=== PATIENT | female | born 1985 | race Caucasian/White ===

== ENCOUNTER 2016-07-15 16:15 | Outpatient (CLI) | payer MEDICAID ==
--- NOTE | 2016-07-15 17:00 | Non Stress Test Report ---
Non Stress Test Datetime Report Generated by CPN: 07/15/2016 17:00 INDICATION Indication for Study: Ordered by Provider MONITORING Monitor Explained: Monitor Explained; Test Explained; Patient Verbalized Understanding Time on Monitor: 07/15/2016 16:24 Time off Monitor: 07/15/2016 16:50 NST Duration: 26 NST INTERVENTIONS NST Interventions: PO Hydration Physician Notified NST: Dr. Wong BABY A: [id number] Movement : Present Contraction Frequency : none FHR Baseline : 140 Accelerations : 15X15 Decelerations : None Variability : Moderate 6-25bpm NST Review: Meets Criteria for Reactive NST NST Review and Verified By : Thien Erickson [facility] NST Results: Reactive NST REPORT Report Trigger: Send Report
== END 2016-07-15 16:55 | disposition home or self-care (01) ==
LOC: LC 16:15
PROVIDERS: ATTEND Obstetrics & Gynecology
PROC: 4A1HXCZ Monitoring of Products of Conception, Cardiac Rate, External Approach (ICD-10-PCS; principal; 2016-07-15)
DX: Z34.93 Encounter for supervision of normal pregnancy, unspecified, third trimester (principal); Z36 Encounter for antenatal screening of mother; Z3A.38 38 weeks gestation of pregnancy
CPT/HCPCS: 59025

== ENCOUNTER 2016-07-26 05:06 | Inpatient (IN) | payer MEDICAID, OTHER ==
[2016-07-21 11:36] LABS: ABSOLUTE EOSINOPHILS # (AUTO) 0.1 10^3/uL (0.0-0.6); ABSOLUTE LYMPHOCYTES (AUTO) 2.3 10^3/uL (0.5-4.7); ABSOLUTE NEUT (AUTO) 7.4 10^3/uL (1.7-8.2); BASOPHILS % (AUTO) 0.4 % (0-2); EOSINOPHILS % (AUTO) 1.4 % (0-6); HEMOGLOBIN 12.9 g/dL (12.0-15.5); HGB HCT DIFFERENCE 1.7; LYMPHOCYTES % (AUTO) 21.5 % (13-45); MEAN CORPUSCULAR HGB CONC 34.9 g/dL (32.0-36.0); MEAN CORPUSCULAR VOLUME 86 fl (80-97); MONOCYTES % (AUTO) 8.7 % (3-13); RED CELL DISTRIBUTION WIDTH 12.9 % (11.5-14.0); WHITE BLOOD COUNT 10.9 10^3/uL (4.0-10.5)
[2016-07-21 11:45] LABS: APPEARANCE,URINE SLIGHTLY-CLOUDY; BILIRUBIN,URINE NEGATIVE (NEGATIVE); GLUCOSE, URINE NEGATIVE (NEGATIVE); KETONES,URINE NEGATIVE (NEGATIVE); LEUKOCYTE ESTERASE,URINE NEGATIVE (NEGATIVE); NITRITE,URINE NEGATIVE (NEGATIVE); PROTEIN,URINE NEGATIVE (NEGATIVE); URINE SPECIFIC GRAVITY 1.005; UROBILINOGEN,URINE NEGATIVE mg/dL (<2.0)
[2016-07-21 12:04] LABS: URINE BARBITURATES SCREEN NEGATIVE; URINE METHADONE SCREEN NEGATIVE; URINE OPIATES LOW NEGATIVE; URINE PHENCYCLIDINE SCREEN NEGATIVE
[~2016-07-26 05:06] MED LIST: CEFAZOLIN 1 GM/D5W RTU 1 GM/50 ML RTUPB IV PRN; RINGERS SOLUTION,LACTATED 1,000 ML IV PRN; RINGERS SOLUTION,LACTATED 2,000 ML IV PRN
[2016-07-26] MEDS ORDERED: EPHEDRINE SULFATE INJ 50 MG/1 ML AMPULE ONE (07:31)
[2016-07-26] MEDS ORDERED: PROPOFOL INJ 200 MG/20 ML VIAL IV ONE (07:31)
[2016-07-26] MEDS ORDERED: MIDAZOLAM 2 MG/2 ML INJ ONE (07:31)
[2016-07-26] MEDS ORDERED: FENTANYL CITRATE INJ/PF 100 MCG/2 ML AMPUL ONE (07:31)
[2016-07-26] MEDS ORDERED: OXYTOCIN 10 UNIT/ML VIAL ONE (07:31)
[2016-07-26] MEDS ORDERED: OXYCODONE-ACETAMINOPHEN 5-325 MG TABLET PO PRN ×2 (08:18)
[2016-07-26] MEDS ORDERED: MORPHINE SULFATE 10 MG/ML INJ IV PRN (08:18)
[2016-07-26] MEDS ORDERED: FENTANYL CITRATE INJ/PF 100 MCG/2 ML AMPUL IV PRN ×3 (08:18)
[2016-07-26] MEDS ORDERED: PROMETHAZINE HCL INJ 25 MG/1 ML VIAL IV PRN ×2 (08:18→09:20)
[2016-07-26] MEDS ORDERED: DIPHENHYDRAMINE HCL 50 MG/ML VIAL IV PRN (08:18)
[2016-07-26] MEDS ORDERED: MEPERIDINE HCL/PF INJ 25 MG/1 ML DISP.SYRIN IV PRN (08:18)
[2016-07-26] MEDS ORDERED: RINGERS SOLUTION,LACTATED 1,000 ML IV PRN (09:20)
[2016-07-26] MEDS ORDERED: MEASLES,MUMPS&RUBELLA VACC/PF 0.5 ML VIAL SUBCUT PRN (09:20)
[2016-07-26] MEDS ORDERED: OXYTOCIN/NORMAL SALINE 1,000 ML IV PRN (09:20)
[2016-07-26] MEDS ORDERED: DIPH/PERTUSS(ACELL)/TETANUS VAC/PF 0.5 ML SYR (>=10YO) IM PRN (09:20)
[2016-07-26] MEDS ORDERED: ACETAMINOPHEN 325 MG TABLET PO PRN (09:20)
[2016-07-26] MEDS ORDERED: ACETAMINOPHEN 100 ML IV PRN (09:20)
--- NOTE | 2016-07-26 09:32 | Operative Report ---
Operative Report DATE OF SURGERY: 07/26/16 PREOPERATIVE DIAGNOSIS: Repeat breech POSTOPERATIVE DIAGNOSIS: Same OPERATION: Repeat via low transverse uterine incision SURGEON: SANJEEV MATIAS [employer] ATHLETIC DIRECTOR: or staff ANESTHESIA: Spinal TISSUE REMOVED OR ALTERED: Placenta COMPLICATIONS: None ESTIMATED BLOOD LOSS: 250 mL INTRAOPERATIVE FINDINGS: Viable female Apgars 9/9, klaudia breech PROCEDURE: Patient was taken to the OR and placed in supine position after her spinal anesthesia. She is prepared and draped in sterile fashion. Tucker was placed for drainage of the bladder. Low transverse incision was made and carried down the level of the fascia. The fascial incision was made with knife and extended bilaterally with curved Ruiz scissors. The fascia was off the rectus muscles using sharp and blunt dissection. The rectus muscles are in the midline. The peritoneum was entered without incident. Bladder blade was placed in uterine segment was identified. A low transverse incision was made creating a bladder flap. Bladder blade was placed low transverse uterine incision was made with the csafe knife and extended with fingertips. The baby was delivered klaudia breech with some fundal pressure. Mouth and nose were suctioned free. The cord is doubly clamped and cut. Baby is passed off to the retail associate manager bilingual in attendance. The placenta was manually extracted with trailing membranes. The uterus was externalized wrapped in a moist lap sponge. Uterine contents wiped free. Uterus was closed with a running locking layer of 0 chromic suture using the second layer to imbricate the first completing a double layer closure of the uterus. The serosa was closed with a running 2-0 chromic stitch. The pelvis was irrigated and suctioned free of fluid the uterus was replaced in the abdomen. The abdominal wall peritoneum was closed with running 2-0 chromic stitch. Fascia was closed with a running 0 Vicryl in 2 segments. Zhao's layer was brought together with 0 plain gut stitch and the skin was closed with running subcuticular 4-0 undyed Vicryl stitch. The wound was dressed mother and baby did well.
--- NOTE | 2016-07-26 09:35 | PDOC DELIVERY SUMMARY ---
Delivery Summary - Maternal Hx : II Hx # Term Pregnancies: 1 MARY: 08/02/16 Ruptured Membranes: AROM Time of Rupture: 08:24 Fluids: Clear - Delivery Presentation: Breech Support Person Present: Yes Location: OR : Scheduled Placenta: Within Normal Limits Delivery of Placenta Date: 07/26/16 Delivery of Placenta Time: 08:27 - Medications Type of Anesthesia:: Spinal - Assess and Care Baby 1 Female Delivery of Date: 07/26/16 Delivery of Infant Time: 08:25 at 1 minute: 9 at 5 minutes: 9 Preprinted Number On Band: [id number] Skin to Skin: Yes Skin to Skin (Mins): 2 To Nursery At: 08:35 Mode of Transport: [facility] - Delivery Personnel Nursery RN: CLARK POST RN RN: IRINA GARCIA RN: KAREN BURDEN MD: SANJEEV MORAES Copy Center Specialist: JUAN
[2016-07-26] MEDS ORDERED: DIPHENHYDRAMINE HCL 50 MG/ML VIAL ONE (09:39)
[2016-07-26] MEDS ORDERED: ACETAMINOPHEN 100 ML IV ONE (09:40)
[2016-07-26] MEDS: HYDROMORPHONE HCL INJ/PF 2 MG/ML AMPULE IV PRN ×2 (10:33→14:21)
[2016-07-26] MEDS: PRENATAL VITAMIN W-O CA NO5/FE FUMARATE/FA CAPSULE PO SCH (12:01)
[2016-07-26] MEDS: DOCUSATE SODIUM 100 MG CAPSULE PO SCH ×2 (12:01→17:28)
[2016-07-26] MEDS: OXYCODONE-ACETAMINOPHEN 5-325 MG TABLET PO PRN ×2 (12:02→18:26)
[2016-07-26] MEDS ORDERED: ONDANSETRON HCL INJ/PF 4 MG/2 ML SDV ONE (12:41)
[2016-07-26] MEDS ORDERED: PHENYLEPHRINE HCL INJ/PF 10 MG/1 ML SDV ONE (12:41)
[2016-07-26] MEDS: KETOROLAC TROMETHAMINE INJ/PF 30 MG/1 ML SDV IV SCH ×2 (13:11→21:06)
--- NOTE | 2016-07-26 15:24 | L&D Discharge Summary ---
OB Discharge Summary Datetime Report Generated by CPN: 07/26/2016 15:24 DISCHARGE DIAGNOSIS Diagnosis/Symptoms: Other Diagnoses/Symptoms Other: IUP at 37.3, reactive NST Gestation: 38.2 Number of Babies in Womb: 1 Parity: 1 DIET/ACTIVITY/RESTRICTIONS Diet: Regular Activity: Normal Activity TEACHING/INSTRUCTIONS/REFERRALS Instructions Given To: patient Instructions Understood: Patient Verbalized Understanding Referrals: None Educational Materials- Other: kick counts care notes given DISCHARGE INFORMATION Discharged AMA: No Discharge Date/Time: 07/15/2016 16:55 Discharged To: Home Discharge Provider Name: Dr. Wong Accompanied By: self Discharge Method: Ambulatory Condition: Stable FOLLOW UP INFORMATION Follow Up With: [facility] Follow Up On: As Scheduled Follow Up Phone Number: [facility] - GENERAL INSTR-CALL PROVIDER IF: Contractions: Contractions or cramps become more frequent than 8 in one hour or 4 in 20 minutes; Regular painful contractions every 5 minutes or less for one hour. Time your contractions from the beginning of one to the beginning of the next Pressure: Pressure in your vagina or lower abdomen that may feel like the baby is pushing down Period Like Cramps: Period-like cramps or low dull backache that may come and go Cramps/Diarrhea: Abdominal cramps that may be accompanied by diarrhea Gush of Fluid/Blood: Gush of fluid or blood from your vagina (it is normal to have spotting after vaginal exam or intercourse) Vaginal Discharge: Change in the type or amount of vaginal discharge Decreased Movement: Your baby is not moving as much as usual- 4 movements in 1 hour after drinking and resting on side Temperature: Temperature greater than 100.0(F) orally
[2016-07-27] MEDS: OXYCODONE-ACETAMINOPHEN 5-325 MG TABLET PO PRN ×5 (00:17→21:56)
[2016-07-27] MEDS: SIMETHICONE 80 MG TAB.CHEW PO PRN ×3 (00:23→12:04)
[2016-07-27] MEDS: KETOROLAC TROMETHAMINE INJ/PF 30 MG/1 ML SDV IV SCH (05:15)
[2016-07-27 06:51] LABS: HEMATOCRIT 31.4 % (36.0-47.0); HGB HCT DIFFERENCE 1.6; MEAN CORPUSCULAR VOLUME 86 fl (80-97); RED BLOOD COUNT 3.66 10^6/uL (3.72-5.28); RED CELL DISTRIBUTION WIDTH 13.3 % (11.5-14.0); WHITE BLOOD COUNT 13.5 10^3/uL (4.0-10.5)
--- NOTE | 2016-07-27 09:01 | PDOC PROGRESS REPORT ---
Subjective-OB Subjective: Post Delivery Day: 31 year old. Denies any needs at this time Doing well, no c/o, OOB, scant lochia, breast feeding, pain under control, + flatus Physical Exam (OB) Vital Signs: Temp Pulse Resp BP Pulse Ox 98.0 F 87 17 107/67 93 07/27/16 03:45 07/27/16 03:45 07/27/16 03:45 07/27/16 03:45 07/27/16 03:45 Intake & Output 07/26/16 07/27/16 07/28/16 06:59 06:59 06:59 Intake Total 700 Output Total 1700 Balance -1000 Weight 76.4 kg - PIH/Pre-Eclampsia Clonus: Negative - Dressing Removed: No - opsite Incision: Dressing - Lochia Lochia Amount: Small 10-25 ml Lochia Color: Rubra/Red - Abdomen Description: Soft, Round Hernia Present: No Fundal Description: Firm, Midline Fundal Height: u/u - u/2 Objective-Diagnostic Laboratory: 07/27/16 06:33 07/27/16 06:33 WBC 13.5 H RBC 3.66 L Hgb 11.0 L Hct 31.4 L MCV 86 MCH 30.0 MCHC 35.0 RDW 13.3 Plt Count 141 L Assessment and Plan(PN) - Assessment and Plan (1) Hypothyroid Qualifiers: Hypothyroidism type: unspecified Qualified Code(s): E03.9 - Hypothyroidism, unspecified Is this a current diagnosis for this admission?: Yes (2) Asthma Qualifiers: Asthma severity: unspecified severity Is this a current diagnosis for this admission?: Yes - Time Spent with Patient Time with patient: Less than 15 minutes Smoking Education Provided: Over 3 minutes Medications reviewed and adjusted accordingly: Yes - Disposition Anticipated Discharge: Home Within: within 24 hours
[2016-07-27] MEDS: PRENATAL VITAMIN W-O CA NO5/FE FUMARATE/FA CAPSULE PO SCH (10:17)
[2016-07-27] MEDS: DOCUSATE SODIUM 100 MG CAPSULE PO SCH ×2 (10:17→17:06)
[2016-07-27] MEDS: IBUPROFEN 800 MG TABLET PO SCH ×3 (12:02→23:52)
[2016-07-27] MEDS ORDERED: NA PHOS,M-B/NA PHOS,DI-BA (ADULT) 133 ML ENEMA PR ONE (18:30)
[2016-07-27 21:43] LABS: APPEARANCE,URINE CLEAR; BILIRUBIN,URINE NEGATIVE (NEGATIVE); GLUCOSE, URINE NEGATIVE (NEGATIVE); KETONES,URINE NEGATIVE (NEGATIVE); LEUKOCYTE ESTERASE,URINE NEGATIVE (NEGATIVE); NITRITE,URINE NEGATIVE (NEGATIVE); PROTEIN,URINE NEGATIVE (NEGATIVE); UROBILINOGEN,URINE NEGATIVE mg/dL (<2.0)
[2016-07-28] MEDS: OXYCODONE-ACETAMINOPHEN 5-325 MG TABLET PO PRN ×2 (03:57→08:28)
[2016-07-28] MEDS: IBUPROFEN 800 MG TABLET PO SCH ×2 (05:10→11:50)
[2016-07-28] MEDS: SIMETHICONE 80 MG TAB.CHEW PO PRN (08:27)
--- NOTE | 2016-07-28 09:50 | PDOC DISCHARGE SUMMARY ---
Final Diagnosis Discharge Date: 07/28/16 - Final Diagnosis (1) Asthma Is this a current diagnosis for this admission?: Yes (2) Gestational diabetes mellitus Is this a current diagnosis for this admission?: Yes (3) History of delivery, currently Is this a current diagnosis for this admission?: Yes (4) Hypothyroid Is this a current diagnosis for this admission?: Yes Discharge Data - Discharge Medication Home Medications: Glyburide 1.25 mg PO QAM 07/26/16 No.40/Iron/FA/Dha [ Multi-Dha Softgel] 1 cap PO QAM 07/26/16 Reason(s) for Admission: Ceasarean Section-Repeat Procedures: Management of Obstetric Complications Intrapartum Procedure(s): : Low Cervical, Transverse - Diagnosis Test Laboratory: Temp Pulse Resp BP Pulse Ox 97.5 F 87 16 121/68 99 07/28/16 08:14 07/28/16 08:14 07/28/16 08:14 07/28/16 08:14 07/28/16 08:14 07/21/16 07/21/16 07/27/16 09:55 10:55 06:33 RBC 4.30 3.66 L Hgb 12.9 11.0 L Hct 37.0 31.4 L Urine Opiates Screen NEGATIVE - Discharge information/Instructions Discharge Activity: Activity As Tolerated, No Driving, No Lifting Over 10 Pounds , No Lifting/Push/Pulling, Pelvic Rest, No tub bath Discharge Diet: Regular Disposition: HOME, SELF-CARE Follow up with: [facility] in: 1 - as scheduled on 02 August for follow up continue ambulation
[2016-07-28] MEDS: PRENATAL VITAMIN W-O CA NO5/FE FUMARATE/FA CAPSULE PO SCH (09:53)
[2016-07-28] MEDS: DOCUSATE SODIUM 100 MG CAPSULE PO SCH (09:53)
--- NOTE | 2016-07-28 09:54 | PDOC PROGRESS REPORT ---
Subjective-OB Subjective: Post Delivery Day: 31 year old. Denies any needs at this time pt denies pain several bowel movements after enema abdomen soft incision dry and intact urine culture negative pt ready to go home bonding well with precautions reviewed follow up in 1 week s/p c/s learning verbalized Physical Exam (OB) Vital Signs: Temp Pulse Resp BP Pulse Ox 97.5 F 87 16 121/68 99 07/28/16 08:14 07/28/16 08:14 07/28/16 08:14 07/28/16 08:14 07/28/16 08:14 Intake & Output 07/27/16 07/28/16 07/29/16 06:59 06:59 06:59 Intake Total 700 1910 Output Total 1700 Balance -1000 1910 - PIH/Pre-Eclampsia Clonus: Negative - Dressing Removed: No - optsite cdi Incision: Dressing - Lochia Lochia Amount: Small 10-25 ml Lochia Color: Rubra/Red - Abdomen Description: Soft, Round Hernia Present: No Fundal Description: Firm, Midline Fundal Height: u/u - u/2 Objective-Diagnostic Laboratory: 07/27/16 06:33 07/27/16 21:20 Urine Color YELLOW Urine Appearance CLEAR Urine pH 5.0 Ur Specific [place] 1.010 Urine Protein NEGATIVE Urine Glucose (UA) NEGATIVE Urine Ketones NEGATIVE Urine Blood SMALL H Urine Nitrite NEGATIVE Ur Leukocyte Esterase NEGATIVE Urine WBC (Auto) 0 Urine RBC (Auto) 4 Assessment and Plan(PN) - Assessment and Plan (1) Asthma Qualifiers: Asthma severity: unspecified severity Is this a current diagnosis for this admission?: Yes (2) Gestational diabetes mellitus Is this a current diagnosis for this admission?: Yes (3) History of delivery, currently Is this a current diagnosis for this admission?: Yes (4) Hypothyroid Qualifiers: Hypothyroidism type: unspecified Qualified Code(s): E03.9 - Hypothyroidism, unspecified Is this a current diagnosis for this admission?: Yes - Time Spent with Patient Smoking Education Provided: Over 3 minutes Medications reviewed and adjusted accordingly: Yes - Disposition Anticipated Discharge: Home
[2016-07-28 10:19] VITALS: BP 116/59
--- NOTE | 2016-07-28 16:24 | L&D Discharge Summary ---
OB Discharge Summary Datetime Report Generated by CPN: 07/28/2016 16:23 DISCHARGE DIAGNOSIS Diagnosis/Symptoms: Other Diagnoses/Symptoms Other: IUP at 37.3, reactive NST Gestation: 39.1 Number of Babies in Womb: 1 Parity: 1 DIET/ACTIVITY/RESTRICTIONS Diet: Regular Activity: Normal Activity TEACHING/INSTRUCTIONS/REFERRALS Instructions Given To: patient Instructions Understood: Patient Verbalized Understanding Referrals: None Educational Materials- Other: kick counts care notes given DISCHARGE INFORMATION Discharged AMA: No Discharge Date/Time: 07/15/2016 16:55 Discharged To: Home Discharge Provider Name: Dr. Wong Accompanied By: self Discharge Method: Ambulatory Condition: Stable FOLLOW UP INFORMATION Follow Up With: [facility] Follow Up On: As Scheduled Follow Up Phone Number: [facility] - GENERAL INSTR-CALL PROVIDER IF: Contractions: Contractions or cramps become more frequent than 8 in one hour or 4 in 20 minutes; Regular painful contractions every 5 minutes or less for one hour. Time your contractions from the beginning of one to the beginning of the next Pressure: Pressure in your vagina or lower abdomen that may feel like the baby is pushing down Period Like Cramps: Period-like cramps or low dull backache that may come and go Cramps/Diarrhea: Abdominal cramps that may be accompanied by diarrhea Gush of Fluid/Blood: Gush of fluid or blood from your vagina (it is normal to have spotting after vaginal exam or intercourse) Vaginal Discharge: Change in the type or amount of vaginal discharge Decreased Movement: Your baby is not moving as much as usual- 4 movements in 1 hour after drinking and resting on side Temperature: Temperature greater than 100.0(F) orally
--- NOTE | 2016-07-28 22:47 | L&D General Admission ---
General Admit Datetime Report Generated by CPN: 07/28/2016 22:45 INFORMATION Patient Age: 30 (05/17/2016 17:15:QS system process) EDC: 08/02/2016 00:00 (07/15/2016 16:18:Izabel Thayer RN) Para: 1 (07/15/2016 16:18:Izabel Thayer RN) Baby, Number in Womb: 1 (07/15/2016 16:18:Izabel Thayer RN) CARE Primary Office Admin: [facility] (07/15/2016 16:18:Izabel Thayer RN) Adequate Care: Yes (07/15/2016 16:18:Izabel Thayer RN) Height (in): 62 (07/28/2016 09:50:QS system process) Height (in): 62 (07/26/2016 12:41:QS system process) Height (in): 62 (07/26/2016 05:41:QS system process) Height (in): 62 (07/26/2016 05:11:QS system process) Height (in): 62 (07/26/2016 05:07:QS system process) Height (in): 62 (07/15/2016 17:00:QS system process) ALLERGIES Medication Allergies: No Known Allergies (07/21/2016) (07/26/2016 05:07:QS system process) Medication Allergies: No Known Allergies (07/15/2016) (07/15/2016 17:00:QS system process) Medication Allergies: No Known Allergies (07/29/2015) (05/17/2016 17:15:QS system process) COMMUNICATION Primary Language: Tongan (07/15/2016 16:18:Izabel Thayer RN) Medical Tx Preferred Language: Tongan (07/15/2016 16:18:Izabel Thayer RN) DEMOGRAPHICS Address: [address] [place] [id number] (05/17/2016 17:15:QS system process) Zipcode: [address] (05/17/2016 17:15:QS system process) Home (07/26/2016 05:07:QS system process) Home (05/17/2016 17:15:QS system process) N: [id number] (05/17/2016 17:15:QS system process) Next of Kin Name: FIORDALIZA TAI (05/17/2016 17:15:QS system process) Next of Kin (07/26/2016 05:07:QS system process) Next of Kin (05/17/2016 17:15:QS system process) Next of Kin Relationship: SPO (07/06/2016 09:43:QS system process) Next of Kin Relationship: OR (05/17/2016 17:15:QS system process) Date of : 1985 (05/17/2016 17:15:QS system process) Marital Status: (05/17/2016 17:15:QS system process) Sex: Female (05/17/2016 17:15:QS system process) Race: (05/17/2016 17:15:QS system process) Ethnicity: Non- or (05/17/2016 17:15:QS system process) Jain: None (05/17/2016 17:15:QS system process) [employer] Charcoal Burner: [facility] (07/15/2016 16:18:Julia Nuñez RN) Feeding Preference: Breast (07/15/2016 16:18:Julia Nuñez RN) Benefit of Breast Feed Discussed: Yes (07/15/2016 16:18:Julia Nuñez RN) LABS Hemoglobin: 11.0 L (07/27/2016 06:33:QS system process) Hemoglobin: 12.9 (07/21/2016 10:55:QS system process) Hematocrit: 31.4 L (07/27/2016 06:33:QS system process) Hematocrit: 37.0 (07/21/2016 10:55:QS system process) MCV: 86 (07/27/2016 06:33:QS system process) MCV: 86 (07/21/2016 10:55:QS system process)
--- NOTE | 2016-07-28 22:47 | L&D Discharge Summary ---
OB Discharge Summary Datetime Report Generated by CPN: 07/28/2016 22:45 DISCHARGE DIAGNOSIS Diagnosis/Symptoms: Other Diagnoses/Symptoms Other: IUP at 37.3, reactive NST Gestation: 39.2 Number of Babies in Womb: 1 Parity: 1 DIET/ACTIVITY/RESTRICTIONS Diet: Regular Activity: Normal Activity TEACHING/INSTRUCTIONS/REFERRALS Instructions Given To: patient Instructions Understood: Patient Verbalized Understanding Referrals: None Educational Materials- Other: kick counts care notes given DISCHARGE INFORMATION Discharged AMA: No Discharge Date/Time: 07/15/2016 16:55 Discharged To: Home Discharge Provider Name: Dr. Wong Accompanied By: self Discharge Method: Ambulatory Condition: Stable FOLLOW UP INFORMATION Follow Up With: [facility] Follow Up On: As Scheduled Follow Up Phone Number: [facility] - GENERAL INSTR-CALL PROVIDER IF: Contractions: Contractions or cramps become more frequent than 8 in one hour or 4 in 20 minutes; Regular painful contractions every 5 minutes or less for one hour. Time your contractions from the beginning of one to the beginning of the next Pressure: Pressure in your vagina or lower abdomen that may feel like the baby is pushing down Period Like Cramps: Period-like cramps or low dull backache that may come and go Cramps/Diarrhea: Abdominal cramps that may be accompanied by diarrhea Gush of Fluid/Blood: Gush of fluid or blood from your vagina (it is normal to have spotting after vaginal exam or intercourse) Vaginal Discharge: Change in the type or amount of vaginal discharge Decreased Movement: Your baby is not moving as much as usual- 4 movements in 1 hour after drinking and resting on side Temperature: Temperature greater than 100.0(F) orally
--- NOTE | 2016-07-29 04:47 | L&D Admission Assessment ---
LD ADM ASMT Datetime Report Generated by [facility]: 07/29/2016 04:45 Weight (lb): 167 (07/28/2016 09:50:QS system process) Weight (kg): 75.9 (07/28/2016 09:50:QS system process) BMI: 30.5 (07/28/2016 09:50:QS system process)
--- NOTE | 2016-07-29 04:47 | L&D Discharge Summary ---
OB Discharge Summary Datetime Report Generated by CPN: 07/29/2016 04:45 DISCHARGE DIAGNOSIS Diagnosis/Symptoms: Other Diagnoses/Symptoms Other: IUP at 37.3, reactive NST Gestation: 39.2 Number of Babies in Womb: 1 Parity: 1 DIET/ACTIVITY/RESTRICTIONS Diet: Regular Activity: Normal Activity TEACHING/INSTRUCTIONS/REFERRALS Instructions Given To: patient Instructions Understood: Patient Verbalized Understanding Referrals: None Educational Materials- Other: kick counts care notes given DISCHARGE INFORMATION Discharged AMA: No Discharge Date/Time: 07/15/2016 16:55 Discharged To: Home Discharge Provider Name: Dr. Wong Accompanied By: self Discharge Method: Ambulatory Condition: Stable FOLLOW UP INFORMATION Follow Up With: [facility] Follow Up On: As Scheduled Follow Up Phone Number: [facility] - GENERAL INSTR-CALL PROVIDER IF: Contractions: Contractions or cramps become more frequent than 8 in one hour or 4 in 20 minutes; Regular painful contractions every 5 minutes or less for one hour. Time your contractions from the beginning of one to the beginning of the next Pressure: Pressure in your vagina or lower abdomen that may feel like the baby is pushing down Period Like Cramps: Period-like cramps or low dull backache that may come and go Cramps/Diarrhea: Abdominal cramps that may be accompanied by diarrhea Gush of Fluid/Blood: Gush of fluid or blood from your vagina (it is normal to have spotting after vaginal exam or intercourse) Vaginal Discharge: Change in the type or amount of vaginal discharge Decreased Movement: Your baby is not moving as much as usual- 4 movements in 1 hour after drinking and resting on side Temperature: Temperature greater than 100.0(F) orally
--- NOTE | 2016-07-29 04:47 | L&D General Admission ---
General Admit Datetime Report Generated by CPN: 07/29/2016 04:45 INFORMATION Patient Age: 30 (05/17/2016 17:15:QS system process) EDC: 08/02/2016 00:00 (07/15/2016 16:18:Izabel Thayer RN) Para: 1 (07/15/2016 16:18:Izabel Thayer RN) Baby, Number in Womb: 1 (07/15/2016 16:18:Izabel Thayer RN) CARE Primary Computer Forensic Examiner: [facility] (07/15/2016 16:18:Izabel Thayer RN) Adequate Care: Yes (07/15/2016 16:18:Izabel Thayer RN) Height (in): 62 (07/28/2016 09:50:QS system process) Height (in): 62 (07/26/2016 12:41:QS system process) Height (in): 62 (07/26/2016 05:41:QS system process) Height (in): 62 (07/26/2016 05:11:QS system process) Height (in): 62 (07/26/2016 05:07:QS system process) Height (in): 62 (07/15/2016 17:00:QS system process) ALLERGIES Medication Allergies: No Known Allergies (07/21/2016) (07/26/2016 05:07:QS system process) Medication Allergies: No Known Allergies (07/15/2016) (07/15/2016 17:00:QS system process) Medication Allergies: No Known Allergies (07/29/2015) (05/17/2016 17:15:QS system process) COMMUNICATION Primary Language: Montenegrin (07/15/2016 16:18:Izabel Thayer RN) Medical Tx Preferred Language: Montenegrin (07/15/2016 16:18:Izabel Thayer RN) DEMOGRAPHICS Address: [address] [place] [id number] (05/17/2016 17:15:QS system process) Zipcode: [address] (05/17/2016 17:15:QS system process) Home (07/26/2016 05:07:QS system process) Home (05/17/2016 17:15:QS system process) N: [id number] (05/17/2016 17:15:QS system process) Next of Kin Name: FIORDALIZA TAI (05/17/2016 17:15:QS system process) Next of Kin (07/26/2016 05:07:QS system process) Next of Kin (05/17/2016 17:15:QS system process) Next of Kin Relationship: SPO (07/06/2016 09:43:QS system process) Next of Kin Relationship: OR (05/17/2016 17:15:QS system process) Date of : 1985 (05/17/2016 17:15:QS system process) Marital Status: (05/17/2016 17:15:QS system process) Sex: Female (05/17/2016 17:15:QS system process) Race: (05/17/2016 17:15:QS system process) Ethnicity: Non- or (05/17/2016 17:15:QS system process) Nondenominational: None (05/17/2016 17:15:QS system process) Transformer Inspector: [facility] (07/15/2016 16:18:Julia Nuñez RN) Feeding Preference: Breast (07/15/2016 16:18:Julia Nuñez RN) Benefit of Breast Feed Discussed: Yes (07/15/2016 16:18:Julia Nuñez RN) LABS Hemoglobin: 11.0 L (07/27/2016 06:33:QS system process) Hemoglobin: 12.9 (07/21/2016 10:55:QS system process) Hematocrit: 31.4 L (07/27/2016 06:33:QS system process) Hematocrit: 37.0 (07/21/2016 10:55:QS system process) MCV: 86 (07/27/2016 06:33:QS system process) MCV: 86 (07/21/2016 10:55:QS system process)
--- NOTE | 2016-07-29 10:47 | L&D Discharge Summary ---
OB Discharge Summary Datetime Report Generated by CPN: 07/29/2016 10:45 DISCHARGE DIAGNOSIS Diagnosis/Symptoms: Other Diagnoses/Symptoms Other: IUP at 37.3, reactive NST Gestation: 39.2 Number of Babies in Womb: 1 Parity: 1 DIET/ACTIVITY/RESTRICTIONS Diet: Regular Activity: Normal Activity TEACHING/INSTRUCTIONS/REFERRALS Instructions Given To: patient Instructions Understood: Patient Verbalized Understanding Referrals: None Educational Materials- Other: kick counts care notes given DISCHARGE INFORMATION Discharged AMA: No Discharge Date/Time: 07/15/2016 16:55 Discharged To: Home Discharge Provider Name: Dr. Wong Accompanied By: self Discharge Method: Ambulatory Condition: Stable FOLLOW UP INFORMATION Follow Up With: [facility] Follow Up On: As Scheduled Follow Up Phone Number: [facility] - GENERAL INSTR-CALL PROVIDER IF: Contractions: Contractions or cramps become more frequent than 8 in one hour or 4 in 20 minutes; Regular painful contractions every 5 minutes or less for one hour. Time your contractions from the beginning of one to the beginning of the next Pressure: Pressure in your vagina or lower abdomen that may feel like the baby is pushing down Period Like Cramps: Period-like cramps or low dull backache that may come and go Cramps/Diarrhea: Abdominal cramps that may be accompanied by diarrhea Gush of Fluid/Blood: Gush of fluid or blood from your vagina (it is normal to have spotting after vaginal exam or intercourse) Vaginal Discharge: Change in the type or amount of vaginal discharge Decreased Movement: Your baby is not moving as much as usual- 4 movements in 1 hour after drinking and resting on side Temperature: Temperature greater than 100.0(F) orally
--- NOTE | 2016-07-29 10:47 | L&D Admission Assessment ---
LD ADM ASMT Datetime Report Generated by N: 07/29/2016 10:45 Weight (lb): 167 (07/28/2016 09:50:QS system process) Weight (kg): 75.9 (07/28/2016 09:50:QS system process) BMI: 30.5 (07/28/2016 09:50:QS system process)
--- NOTE | 2016-07-29 10:47 | L&D General Admission ---
General Admit Datetime Report Generated by CPN: 07/29/2016 10:45 INFORMATION Patient Age: 30 (05/17/2016 17:15:QS system process) EDC: 08/02/2016 00:00 (07/15/2016 16:18:Izabel Thayer RN) Para: 1 (07/15/2016 16:18:Izabel Thayer RN) Baby, Number in Womb: 1 (07/15/2016 16:18:Izabel Thayer RN) CARE Primary Bead Wire Taper: [facility] (07/15/2016 16:18:Izabel Thayer RN) Adequate Care: Yes (07/15/2016 16:18:Izabel Thayer RN) Height (in): 62 (07/28/2016 09:50:QS system process) Height (in): 62 (07/26/2016 12:41:QS system process) Height (in): 62 (07/26/2016 05:41:QS system process) Height (in): 62 (07/26/2016 05:11:QS system process) Height (in): 62 (07/26/2016 05:07:QS system process) Height (in): 62 (07/15/2016 17:00:QS system process) ALLERGIES Medication Allergies: No Known Allergies (07/21/2016) (07/26/2016 05:07:QS system process) Medication Allergies: No Known Allergies (07/15/2016) (07/15/2016 17:00:QS system process) Medication Allergies: No Known Allergies (07/29/2015) (05/17/2016 17:15:QS system process) COMMUNICATION Primary Language: [place] Islander (07/15/2016 16:18:Izabel Thayer RN) Medical Tx Preferred Language: [place] Islander (07/15/2016 16:18:Izabel Thayer RN) DEMOGRAPHICS Address: [address] [place] [id number] (05/17/2016 17:15:QS system process) Zipcode: [address] (05/17/2016 17:15:QS system process) Home (07/26/2016 05:07:QS system process) Home (05/17/2016 17:15:QS system process) N: [phone] (05/17/2016 17:15:QS system process) Next of Kin Name: FIORDALIZA TAI (05/17/2016 17:15:QS system process) Next of Kin (07/26/2016 05:07:QS system process) Next of Kin (05/17/2016 17:15:QS system process) Next of Kin Relationship: SPO (07/06/2016 09:43:QS system process) Next of Kin Relationship: [place] (05/17/2016 17:15:QS system process) Date of : 1985 (05/17/2016 17:15:QS system process) Marital Status: (05/17/2016 17:15:QS system process) Sex: Female (05/17/2016 17:15:QS system process) Race: (05/17/2016 17:15:QS system process) Ethnicity: Non- or (05/17/2016 17:15:QS system process) Buddhist: None (05/17/2016 17:15:QS system process) Dx Board Operator: [facility] (07/15/2016 16:18:Julia Nuñez RN) Feeding Preference: Breast (07/15/2016 16:18:Julia Nuñez RN) Benefit of Breast Feed Discussed: Yes (07/15/2016 16:18:Julia Nuñez RN) LABS Hemoglobin: 11.0 L (07/27/2016 06:33:QS system process) Hemoglobin: 12.9 (07/21/2016 10:55:QS system process) Hematocrit: 31.4 L (07/27/2016 06:33:QS system process) Hematocrit: 37.0 (07/21/2016 10:55:QS system process) MCV: 86 (07/27/2016 06:33:QS system process) MCV: 86 (07/21/2016 10:55:QS system process)
== END 2016-07-28 13:23 | disposition home or self-care (01) | DRG 766 ==
LOC: 2S 05:06
PROVIDERS: ADMIT Obstetrics & Gynecology; ATTEND Obstetrics & Gynecology
PROC: 10D00Z1 Extraction of Products of Conception, Low, Open Approach (ICD-10-PCS; principal; 2016-07-26 07:45)
DX: O24.425 Gestational diabetes mellitus in childbirth, controlled by oral hypoglycemic drugs (principal); O32.1XX0 Maternal care for breech presentation, not applicable or unspecified; O99.284 Endocrine, nutritional and metabolic diseases complicating childbirth; O34.211 Maternal care for low transverse scar from previous cesarean delivery; E03.9 Hypothyroidism, unspecified; J45.909 Unspecified asthma, uncomplicated; O75.89 Other specified complications of labor and delivery; Z37.0 Single live birth; Z3A.37 37 weeks gestation of pregnancy
CPT/HCPCS: 1961; 36415; 59025; 80307; 81001; 85025; 85027; 86850; 86900; 86901; 87086; 94799; J0131; J0690; J1170; J1200; J1885; J2250; J2370; J2405; J2590; J2704; J3010; J3490; J7120

== ENCOUNTER 2019-01-09 15:25 | Outpatient (CLI) | payer OTHER ==
[2019-01-09 16:18] LABS: APPEARANCE,URINE SLIGHTLY-CLOUDY; BILIRUBIN,URINE NEGATIVE (NEGATIVE); COLOR,URINE YELLOW; GLUCOSE, URINE NEGATIVE (NEGATIVE); KETONES,URINE NEGATIVE (NEGATIVE); LEUKOCYTE ESTERASE,URINE NEGATIVE (NEGATIVE); NITRITE,URINE NEGATIVE (NEGATIVE); PROTEIN,URINE NEGATIVE (NEGATIVE); URINE SPECIFIC GRAVITY 1.006; UROBILINOGEN,URINE NEGATIVE mg/dL (<2.0)
[2019-01-09 16:40] LABS: URINE AMPHETAMINES SCREEN NEGATIVE; URINE BARBITURATES SCREEN NEGATIVE; URINE BENZODIAZEPINES SCREEN NEGATIVE; URINE COCAINE SCREEN NEGATIVE; URINE MARIJUANA (THC) SCREEN NEGATIVE; URINE METHADONE SCREEN NEGATIVE; URINE PHENCYCLIDINE SCREEN NEGATIVE
[2019-01-09] MEDS ORDERED: HYDROXYZINE PAMOATE 50 MG CAPSULE ONE (16:49)
--- NOTE | 2019-01-09 18:22 | Non Stress Test Report ---
Non Stress Test Datetime Report Generated by CPN: 01/09/2019 18:22 DEMOGRAPHIC EGA NST: 38.4 INDICATION Indication for Study: Ordered by Provider MONITORING Monitor Explained: Monitor Explained; Test Explained; Patient Verbalized Understanding Time on Monitor: 01/09/2019 15:52 Time off Monitor: 01/09/2019 17:39 NST Duration: 107 NST INTERVENTIONS NST Interventions: PO Hydration Physician Notified NST: Dr. Jeovany BABY A: [id number] BABY A Movement : Present Contraction Frequency : Irregular FHR Baseline : 145 Accelerations : 15X15 Decelerations : None Variability : Moderate 6-25bpm NST Review: Meets Criteria for Reactive NST NST Review and Verified By : clint anthony RN NST Results: Reactive NST REPORT Report Trigger: Send Report
== END 2019-01-09 17:50 | disposition home or self-care (01) ==
LOC: LC 15:25
PROVIDERS: ATTEND Obstetrics & Gynecology
PROC: 4A1HXCZ Monitoring of Products of Conception, Cardiac Rate, External Approach (ICD-10-PCS; principal; 2019-01-09)
DX: O47.1 False labor at or after 37 completed weeks of gestation (principal); Z3A.38 38 weeks gestation of pregnancy
CPT/HCPCS: 59025; 80307; 81001

== ENCOUNTER 2019-01-15 04:47 | Inpatient (IN) | payer MEDICAID, OTHER ==
[2019-01-12 11:52] LABS: APPEARANCE,URINE SLIGHTLY-CLOUDY; BILIRUBIN,URINE NEGATIVE (NEGATIVE); COLOR,URINE YELLOW; GLUCOSE, URINE NEGATIVE (NEGATIVE); KETONES,URINE NEGATIVE (NEGATIVE); LEUKOCYTE ESTERASE,URINE NEGATIVE (NEGATIVE); NITRITE,URINE NEGATIVE (NEGATIVE); PROTEIN,URINE NEGATIVE (NEGATIVE); URINE SPECIFIC GRAVITY 1.008; UROBILINOGEN,URINE NEGATIVE mg/dL (<2.0)
[2019-01-12 12:12] LABS: ABSOLUTE EOSINOPHILS # (AUTO) 0.1 10^3/uL (0.0-0.6); ABSOLUTE MONOCYTES (AUTO) 0.6 10^3/uL (0.1-1.4); ABSOLUTE NEUT (AUTO) 6.5 10^3/uL (1.7-8.2); BASOPHILS % (AUTO) 0.2 % (0-2); HEMATOCRIT 37.7 % (36.0-47.0); HEMOGLOBIN 12.9 g/dL (12.0-15.5); LYMPHOCYTES % (AUTO) 21.9 % (13-45); MEAN CORPUSCULAR HEMOGLOBIN 28.8 pg (27.0-33.4); MEAN CORPUSCULAR HGB CONC 34.4 g/dL (32.0-36.0); MEAN CORPUSCULAR VOLUME 84 fl (80-97); MONOCYTES % (AUTO) 6.6 % (3-13); PLATELET COUNT 166 10^3/uL (150-450); RED BLOOD COUNT 4.49 10^6/uL (3.72-5.28); RED CELL DISTRIBUTION WIDTH 13.9 % (11.5-14.0); SEGMENTED NEUTROPHILS % (AUTO) 70.3 % (42-78); TOTAL CELLS COUNTED % (AUTO) 100 %; WHITE BLOOD COUNT 9.3 10^3/uL (4.0-10.5)
[2019-01-12 12:17] LABS: URINE AMPHETAMINES SCREEN NEGATIVE; URINE BARBITURATES SCREEN NEGATIVE; URINE BENZODIAZEPINES SCREEN NEGATIVE; URINE COCAINE SCREEN NEGATIVE; URINE MARIJUANA (THC) SCREEN NEGATIVE; URINE METHADONE SCREEN NEGATIVE; URINE PHENCYCLIDINE SCREEN NEGATIVE
[2019-01-12 14:10] LABS: ANION GAP 10 (5-19); BLOOD UREA NITROGEN 8 mg/dL (7-20); CALCIUM 9.3 mg/dL (8.4-10.2); CARBON DIOXIDE 22 mmol/L (22-30); CHLORIDE 105 mmol/L (98-107); GLUCOSE 132 mg/dL (75-110); POTASSIUM 4.2 mmol/L (3.6-5.0)
[2019-01-15] MEDS ORDERED: CEFAZOLIN INJ 1 GM VIAL ONE (06:07)
[2019-01-15] MEDS ORDERED: CEFAZOLIN 2 GM/D5W RTU 2 GM/50 ML RTUPB IV PRN (06:17)
[2019-01-15] MEDS ORDERED: FENTANYL CITRATE INJ/PF 100 MCG/2 ML AMPUL ONE (07:25)
[2019-01-15] MEDS ORDERED: EPHEDRINE SULFATE INJ 50 MG/1 ML AMPULE ONE (07:25)
[2019-01-15] MEDS ORDERED: MIDAZOLAM 2 MG/2 ML INJ ONE (07:25)
[2019-01-15] MEDS ORDERED: OXYTOCIN 10 UNIT/ML VIAL ONE (07:25)
[2019-01-15] MEDS ORDERED: PROPOFOL INJ 200 MG/20 ML VIAL IV ONE (07:26)
[2019-01-15] MEDS ORDERED: ATROPINE SULFATE INJ 1 MG/10 ML DISP.SYRIN IV ONE (07:58)
[2019-01-15] MEDS ORDERED: ESMOLOL HCL INJ/PF 100 MG/10 ML SDV IV ONE (08:02)
[2019-01-15] MEDS ORDERED: FENTANYL CITRATE INJ/PF 100 MCG/2 ML AMPUL IV PRN ×3 (08:21)
[2019-01-15] MEDS ORDERED: MEPERIDINE HCL/PF INJ 25 MG/1 ML DISP.SYRIN IV PRN (08:21)
[2019-01-15] MEDS ORDERED: DIPHENHYDRAMINE HCL 50 MG/ML VIAL IV PRN (08:21)
[2019-01-15] MEDS ORDERED: PROMETHAZINE HCL INJ 25 MG/1 ML VIAL IV PRN ×3 (08:21→08:22)
[2019-01-15] MEDS ORDERED: OXYCODONE-ACETAMINOPHEN 5-325 MG TABLET PO PRN ×2 (08:21)
[2019-01-15] MEDS ORDERED: MEASLES,MUMPS&RUBELLA VACC/PF 0.5 ML VIAL SUBCUT PRN (08:22)
[2019-01-15] MEDS ORDERED: ACETAMINOPHEN 325 MG TABLET PO PRN (08:22)
[2019-01-15] MEDS ORDERED: ACETAMINOPHEN 1,000 MG/100 ML RTUPB IV PRN (08:22)
[2019-01-15] MEDS ORDERED: OXYTOCIN/NORMAL SALINE 20 UNIT/1,000 ML RTUINJ IV PRN (08:22)
[2019-01-15] MEDS ORDERED: DIPH/PERTUSS(ACELL)/TETANUS VAC/PF 0.5 ML SYR (>=10YO) IM PRN (08:22)
--- NOTE | 2019-01-15 08:26 | PDOC DELIVERY SUMMARY ---
Delivery Summary - Maternal Hx : IV Hx # Term Pregnancies: 3 Hx Total # of Abortions (Sponateous & Elective): 1 MARY: 01/19/19 Gestational Age: 39.3 Risk Factors: Previous , Other Ruptured Membranes: AROM Fluids: Clear - Delivery Labor: Not In Labor Uterine Contraction Monitoring: External Support Person Present: Yes : Scheduled Placenta: Abnormal Placenta Description: previa Nuchal Cord: No Delivery of Placenta Date: 01/15/19 Estimated Blood Loss: 900 - Medications Type of Anesthesia:: Spinal
--- NOTE | 2019-01-15 08:30 | Operative Report ---
Operative Report DATE OF SURGERY: 01/15/19 PREOPERATIVE DIAGNOSIS: IUP at term prior section placenta previa jovan re for sterilization POSTOPERATIVE DIAGNOSIS: Same OPERATION: Repeat low transverse section and bilateral tubal ligation with Filshie clips SURGEON: SORAYA SANTA ANESTHESIA: Epidural TISSUE REMOVED OR ALTERED: Placenta COMPLICATIONS: None ESTIMATED BLOOD LOSS: Approximately 900 cc PROCEDURE: The patient was taken to the operating room where spinal anesthesia was obtained and found to be adequate. She was then prepped and draped in the normal sterile fashion and placed in the dorsal supine position with a leftward tilt. A Pfannenstiel skin incision was then made and carried through to the underlying layers of the fascia with the scalpel. The fascia was incised in the midline and the incision extended laterally with the Ruiz scissors. The superior aspect of the fascial incision was then grasped with Tensed clamps elevated and the underlying rectus muscles dissected off bluntly. Attention was then turned to the inferior aspect of the fascial incision which in a similar f ashion was grasped, tented up with Juarez clamps, and the rectus muscles dissected off bluntly. The rectus muscles were then in the midline and the peritoneum at the amount identified and entered bluntly. The peritoneal incision was then extended superiorly and inferiorly with good visualization of the bladder. [The bladder blade was inserted and the vesicouterine peritoneum identified grasped with [place] pickups and entered sharply with the Metzenbaum scissors. His incision was then extended laterally with the Metzenbaum scissors and a bladder flap created digitally. The bladder blade was then reinserted and the lower uterine segment incised in a transverse fashion with the scalpel. The uterine incision was then extended bluntly. The bladder blade was removed and the infant's head was delivered from cephalic presentation atraumatically. The nose and mouth were suctioned and the cord doubly clamped and cut. And the infant was handed off to waiting pediatricians. The placenta was then delivered manully and the uterus exteriorized and cleared of all clots and debris. The uterine incision was then repaired with 1-0 Vicryl in a running locked fashion. A second layer of the same suture was used to obtain hemostasis via imbrication of the initial layer. The right fallopian tube was identified to the fimbria and a Filshie clip was placed on the proximal portion. The procedure was repeated on the left. The uterus was returned to the patient's abdomen. The gutters were cleared of all clots and debris. All operative sites were noted to be hemostatic. The fascia was reapproximated with 0 Vicryl in a running fashion from each lateral edge to the midline. The patient tolerated the procedure well. Sponge lap needle and instrument counts are correct -2. 2 g of Ancef were given prior to skin incision. The patient was taken to the recovery area awake and in stable condition.
[2019-01-15] MEDS ORDERED: MEPERIDINE HCL/PF INJ 25 MG/1 ML DISP.SYRIN ONE (09:07)
[2019-01-15] MEDS ORDERED: MORPHINE SULFATE 10 MG/ML INJ ONE (09:27)
[2019-01-15] MEDS: MORPHINE SULFATE 10 MG/ML INJ IM PRN ×2 (09:29→13:48)
[2019-01-15] MEDS ORDERED: KETOROLAC TROMETHAMINE INJ/PF 30 MG/1 ML SDV ONE (09:43)
[2019-01-15] MEDS ORDERED: ACETAMINOPHEN 1,000 MG/100 ML RTUPB IV ONE (09:43)
[2019-01-15] MEDS ORDERED: OXYTOCIN/NORMAL SALINE 20 UNIT/1,000 ML RTUINJ ONE (09:48)
[2019-01-15] MEDS ORDERED: GLYCOPYRROLATE 1 MG/5 ML VIAL ONE (12:36)
[2019-01-15] MEDS ORDERED: PHENYLEPHRINE HCL INJ/PF 10 MG/1 ML SDV ONE (12:36)
[2019-01-15] MEDS: DOCUSATE SODIUM 100 MG CAPSULE PO SCH ×2 (13:45→17:42)
[2019-01-15] MEDS: PRENATAL VITAMIN W DHA CAPSULE PO SCH (13:45)
[2019-01-15] MEDS: SIMETHICONE 80 MG TAB.CHEW PO PRN ×3 (13:47→23:51)
[2019-01-15] MEDS ORDERED: KETOROLAC TROMETHAMINE INJ/PF 30 MG/1 ML SDV IV SCH (14:00)
[2019-01-15] MEDS: KETOROLAC TROMETHAMINE INJ/PF 30 MG/1 ML SDV IV SCH (17:42)
[2019-01-15] MEDS: OXYCODONE-ACETAMINOPHEN 5-325 MG TABLET PO PRN ×2 (19:44→23:51)
[2019-01-16] MEDS: KETOROLAC TROMETHAMINE INJ/PF 30 MG/1 ML SDV IV SCH (01:11)
[2019-01-16] MEDS: OXYCODONE-ACETAMINOPHEN 5-325 MG TABLET PO PRN ×5 (04:13→21:44)
[2019-01-16] MEDS ORDERED: LIDOCAINE 0.5% INJ-PF (5 MG/ML) 50 ML SDV SUBCUT PRN (05:00)
[2019-01-16] MEDS ORDERED: LACTATED RINGERS 1000 ML IV PRN (05:00)
[2019-01-16 06:48] LABS: HEMATOCRIT 29.7 % (36.0-47.0); HEMOGLOBIN 10.2 g/dL (12.0-15.5); MEAN CORPUSCULAR HEMOGLOBIN 28.5 pg (27.0-33.4); MEAN CORPUSCULAR HGB CONC 34.3 g/dL (32.0-36.0); MEAN CORPUSCULAR VOLUME 83 fl (80-97); PLATELET COUNT 138 10^3/uL (150-450); RED BLOOD COUNT 3.58 10^6/uL (3.72-5.28); RED CELL DISTRIBUTION WIDTH 14.3 % (11.5-14.0); WHITE BLOOD COUNT 13.6 10^3/uL (4.0-10.5)
[2019-01-16] MEDS: SIMETHICONE 80 MG TAB.CHEW PO PRN ×3 (08:26→17:32)
[2019-01-16] MEDS: DOCUSATE SODIUM 100 MG CAPSULE PO SCH ×2 (09:56→17:29)
[2019-01-16] MEDS: PRENATAL VITAMIN W DHA CAPSULE PO SCH (09:56)
[2019-01-16] MEDS: IBUPROFEN 800 MG TABLET PO SCH ×2 (11:38→17:28)
--- NOTE | 2019-01-16 14:22 | PDOC PROGRESS REPORT ---
Subjective-OB Progress Note for:: 01/16/19 Subjective: reports bleeding slowing, pain controlled with current meds, denies needs, not passing gas Physical Exam (OB) Vital Signs: Temp Pulse Resp BP Pulse Ox 98.3 F 95 16 114/67 95 01/16/19 11:08 01/16/19 11:08 01/16/19 11:08 01/16/19 11:08 01/16/19 11:08 Intake & Output 01/15/19 01/16/19 01/17/19 06:59 06:59 06:59 Intake Total 720 Output Total 1950 Balance -1230 Weight 80.739 kg - Incision: Well Approximated - Abdomen Description: Tender, Soft Hernia Present: No Fundal Description: Firm, Midline Fundal Height: u/u - u/2 - Abdominal Distension: No distension, Other - bowel sounds hyperactive - Extremities Lower extremities: Jatinder's sign - neg Calf: Normal, Nontender Objective-Diagnostic Laboratory: 01/16/19 06:35 01/12/19 11:24 01/16/19 06:35 WBC 13.6 H RBC 3.58 L Hgb 10.2 L Hct 29.7 L MCV 83 MCH 28.5 MCHC 34.3 RDW 14.3 H Plt Count 138 L Assessment and Plan(PN) - Assessment and Plan (1) S/P repeat low transverse Is this a current diagnosis for this admission?: Yes (2) Asthma Is this a current diagnosis for this admission?: Yes (3) Gestational diabetes mellitus Is this a current diagnosis for this admission?: Yes - Time Spent with Patient Time with patient: Less than 15 minutes Medications reviewed and adjusted accordingly: Yes - Disposition Anticipated Discharge: Home Within: within 48 hours
[2019-01-17] MEDS: IBUPROFEN 800 MG TABLET PO SCH ×3 (00:16→13:31)
[2019-01-17] MEDS: SIMETHICONE 80 MG TAB.CHEW PO PRN ×2 (02:47→09:02)
[2019-01-17] MEDS: OXYCODONE-ACETAMINOPHEN 5-325 MG TABLET PO PRN ×3 (02:47→13:32)
[2019-01-17] MEDS: PRENATAL VITAMIN W DHA CAPSULE PO SCH (10:21)
[2019-01-17] MEDS: DOCUSATE SODIUM 100 MG CAPSULE PO SCH (10:21)
[2019-01-17 12:53] VITALS: BP 119/76
--- NOTE | 2019-01-17 13:56 | PDOC DISCHARGE SUMMARY ---
Impression - Admit/DC Date/PCP Admission Date/Primary Care Provider: 01/15/19 04:47 JAZIEL LONG MD Discharge Date: 01/17/19 - Discharge Diagnosis (1) Tubal ligation status Is this a current diagnosis for this admission?: Yes (2) Acute blood loss anemia Is this a current diagnosis for this admission?: Yes (3) S/P repeat low transverse Is this a current diagnosis for this admission?: Yes (4) Asthma Is this a current diagnosis for this admission?: Yes (5) Gestational diabetes mellitus Is this a current diagnosis for this admission?: Yes (6) History of delivery, currently Is this a current diagnosis for this admission?: Yes (7) Hypothyroid Is this a current diagnosis for this admission?: Yes - Additional Information Resuscitation Status: Full Code Discharge Diet: As Tolerated, Regular Discharge Activity: Activity As Tolerated, Balance Activity w/Rest, No Lifting Over 10 Pounds, No Lifting/Push/Pulling, Pelvic Rest, No tub bath, Walk Frequently Referrals: [facility] [Provider Group] (Please call and schedule one week follow up.) Prescriptions: Oxycodone HCl/Acetaminophen [Percocet 5-325 mg Tablet] 2 tab PO Q4HP PRN #20 tablet PRN Reason: For Pain Scale 3-5 Ibuprofen [Motrin 800 mg Tablet] 800 mg PO Q8HP PRN #30 tablet PRN Reason: Abdominal Cramping Docusate Sodium [Colace 100 mg Capsule] 100 mg PO BID #60 Ferrous Sulfate [Feosol] 325 mg PO BID #60 tablet Home Medications: Vit 40/Iron/Folic/Dha [ Multi-Dha Softgel] 1 cap PO QAM 07/26/16 Levothyroxine Sodium [Synthroid 0.05 mg Tablet] 50 mcg PO DAILY 01/04/19 Docusate Sodium [Colace 100 mg Capsule] 100 mg PO BID #60 01/17/19 Ferrous Sulfate [Feosol] 325 mg PO BID #60 tablet 01/17/19 Ibuprofen [Motrin 800 mg Tablet] 800 mg PO Q8HP PRN #30 tablet 01/17/19 Oxycodone HCl/Acetaminophen [Percocet 5-325 mg Tablet] 2 tab PO Q4HP PRN #20 tablet 01/17/19 Results Laboratory Results: WBC 13.6 10^3/uL (4.0-10.5) H 01/16/19 06:35 RBC 3.58 10^6/uL (3.72-5.28) L 01/16/19 06:35 Hgb 10.2 g/dL (12.0-15.5) L 01/16/19 06:35 Hct 29.7 % (36.0-47.0) L 01/16/19 06:35 MCV 83 fl (80-97) 01/16/19 06:35 MCH 28.5 pg (27.0-33.4) 01/16/19 06:35 MCHC 34.3 g/dL (32.0-36.0) 01/16/19 06:35 RDW 14.3 % (11.5-14.0) H 01/16/19 06:35 Plt Count 138 10^3/uL (150-450) L 01/16/19 06:35 Lymph % (Auto) 21.9 % (13-45) 01/12/19 11:24 [place] % (Auto) 6.6 % (3-13) 01/12/19 11:24 Eos % (Auto) 1.0 % (0-6) 01/12/19 11:24 Baso % (Auto) 0.2 % (0-2) 01/12/19 11:24 Absolute Neuts (auto) 6.5 10^3/uL (1.7-8.2) 01/12/19 11:24 Absolute Lymphs (auto) 2.0 10^3/uL (0.5-4.7) 01/12/19 11:24 Absolute Monos (auto) 0.6 10^3/uL (0.1-1.4) 01/12/19 11:24 Absolute Eos (auto) 0.1 10^3/uL (0.0-0.6) 01/12/19 11:24 Absolute Basos (auto) 0.0 10^3/uL (0.0-0.2) 01/12/19 11:24 Seg Neutrophils % 70.3 % (42-78) 01/12/19 11:24 Sodium 136.5 mmol/L (137-145) L 01/12/19 11:24 Potassium 4.2 mmol/L (3.6-5.0) 01/12/19 11:24 Chloride 105 mmol/L (98-107) 01/12/19 11:24 Carbon Dioxide 22 mmol/L (22-30) 01/12/19 11:24 Anion Gap 10 (5-19) 01/12/19 11:24 BUN 8 mg/dL (7-20) 01/12/19 11:24 Creatinine 0.55 mg/dL (0.52-1.25) 01/12/19 11:24 Est GFR ( Amer) > 60 (>60) 01/12/19 11:24 Est GFR (MDRD) Non-Af > 60 (>60) 01/12/19 11:24 Glucose 132 mg/dL (75-110) H 01/12/19 11:24 POC Glucose 99 mg/dL (70-110) 01/15/19 06:06 Calcium 9.3 mg/dL (8.4-10.2) 01/12/19 11:24 Total Bilirubin Cancelled 01/12/19 11:24 Direct Bilirubin Cancelled 01/12/19 11:24 Neonat Total Bilirubin Cancelled 01/12/19 11:24 Neonat Direct Bilirubin Cancelled 01/12/19 11:24 Neonat Indirect Bili Cancelled 01/12/19 11:24 AST Cancelled 01/12/19 11:24 ALT Cancelled 01/12/19 11:24 Alkaline Phosphatase Cancelled 01/12/19 11:24 Total Protein Cancelled 01/12/19 11:24 Albumin Cancelled 01/12/19 11:24 Urine Color YELLOW 01/12/19 11:16 Urine Appearance SLIGHTLY-CLOUDY 01/12/19 11:16 Urine pH 7.0 (5.0-9.0) 01/12/19 11:16 Ur Specific [place] 1.008 01/12/19 11:16 Urine Protein NEGATIVE mg/dL (NEGATIVE) 01/12/19 11:16 Urine Glucose (UA) NEGATIVE mg/dL (NEGATIVE) 01/12/19 11:16 Urine Ketones NEGATIVE mg/dL (NEGATIVE) 01/12/19 11:16 Urine Blood NEGATIVE (NEGATIVE) 01/12/19 11:16 Urine Nitrite NEGATIVE (NEGATIVE) 01/12/19 11:16 Urine Bilirubin NEGATIVE (NEGATIVE) 01/12/19 11:16 Urine Urobilinogen NEGATIVE mg/dL (<2.0) 01/12/19 11:16 Ur Leukocyte Esterase NEGATIVE (NEGATIVE) 01/12/19 11:16 Urine WBC (Auto) 1 /HPF 01/12/19 11:16 Urine RBC (Auto) 1 /HPF 01/12/19 11:16 Squamous Epi Cells Auto 7 /HPF 01/12/19 11:16 Urine Mucus (Auto) RARE /LPF 01/12/19 11:16 Urine Ascorbic Acid NEGATIVE (NEGATIVE) 01/12/19 11:16 Urine Opiates Screen NEGATIVE 01/12/19 11:16 Urine Methadone Screen NEGATIVE 01/12/19 11:16 Ur Barbiturates Screen NEGATIVE 01/12/19 11:16 Ur Phencyclidine Scrn NEGATIVE 01/12/19 11:16 Ur Amphetamines Screen NEGATIVE 01/12/19 11:16 U Benzodiazepines Scrn NEGATIVE 01/12/19 11:16 Urine Cocaine Screen NEGATIVE 01/12/19 11:16 U Marijuana (THC) Screen NEGATIVE 01/12/19 11:16 Blood Type A POSITIVE 01/13/19 11:03 Antibody Screen NEGATIVE 01/13/19 11:03
== END 2019-01-17 15:50 | disposition home or self-care (01) | DRG 784 ==
LOC: 2S 04:47
PROVIDERS: ADMIT Obstetrics & Gynecology Gynecology; ATTEND Obstetrics & Gynecology Gynecology
PROC: 0UL70CZ Occlusion of Bilateral Fallopian Tubes with Extraluminal Device, Open Approach (ICD-10-PCS; 2019-01-15)
PROC: 10D00Z1 Extraction of Products of Conception, Low, Open Approach (ICD-10-PCS; principal; 2019-01-15 07:45)
DX: O34.211 Maternal care for low transverse scar from previous cesarean delivery (principal); D62 Acute posthemorrhagic anemia; O44.03 Complete placenta previa NOS or without hemorrhage, third trimester; Z30.2 Encounter for sterilization; O90.81 Anemia of the puerperium; O99.284 Endocrine, nutritional and metabolic diseases complicating childbirth; E03.9 Hypothyroidism, unspecified; O24.420 Gestational diabetes mellitus in childbirth, diet controlled; Z87.891 Personal history of nicotine dependence; Z79.899 Other long term (current) drug therapy; Z3A.39 39 weeks gestation of pregnancy; Z37.0 Single live birth
CPT/HCPCS: 1961; 36415; 80048; 80307; 81001; 82962; 85025; 85027; 86850; 86900; 86901; 94799; J0131; J0461; J1885; J2175; J2250; J2270; J2370; J2590; J2704; J3010; J3490; J7120